=== PATIENT | female | born 1950 | race Caucasian/White ===

== ENCOUNTER 2016-10-17 20:05 | Emergency (ER) | payer OTHER ==
--- NOTE | 2016-10-17 21:27 | ED CLINICAL REPORT ---
Clinical Report - Physicians/Mid Levels [facility] [address] [place] [address] 10/17/2016 20:06 [id number] Time Seen: 20:37; initial patient contact. Arrived- By private vehicle. Historian- patient. HISTORY OF PRESENT ILLNESS Chief Complaint: Chief Complaint- INJURY TO LEFT HAND. INJURY TO THE LEFT INDEX FINGER (Skin at the first knuckle sliced almost completey off.). The injury happened just prior to arrival. Occurred at home. The patient sustained a laceration from a knife. Patient is experiencing moderate pain. No other injury. REVIEW OF SYSTEMS The patient sustained a single laceration to the left index finger. All systems otherwise negative, except as recorded above. PAST HISTORY See nurses notes. The patient's dominant hand is the right. Tetanus immunization status is unknown. Problems: Osteoporosis. Medications: Evista Oral 60 mg, daily. Allergies: None. SOCIAL HISTORY Never smoker. No alcohol use or drug use. ADDITIONAL NOTES The nursing notes have been reviewed with agreement regarding the chief complaint, HPI, ROS, PMH and patient medications and allergies. PHYSICAL EXAM Vital Signs: 10/17/2016 21:40 BP: 136/78. HR: 74. RR: 20. O2 saturation: 99%. Pain level now: 1/10. Have been reviewed. Appearance: Alert. Oriented X3. No acute distress. Skin: Skin intact. Skin warm and dry. Normal skin color. Normal skin turgor. Extremities: No signs of infection present in the upper extremities. Left index finger: superficial 0.5 cm laceration of the dorsal aspect, DIP joint and distal phalanx- SEE LACERATION PROCEDURE NOTE #1. Neurovascular intact distally. No limitation in movement. No subungual hematoma or amputation present. Upper extremity otherwise negative. Extremities otherwise negative. Neuro, Vascular and Tendons: Vascular status intact. Sensation intact. Motor intact. Tendon function intact. Neuro: Oriented X 3. PROGRESS AND PROCEDURES Laceration Repair: Time: 21:25. Location: left index finger. Length: 0.5cm. Complexity: simple (closed with tissue adhesive). Wound depth/shape- curved and subcutaneous and with avulsion. Distal neuro/vascular/tendon status normal. Local anesthesia provided using 1% lidocaine (.5 mL). Prepped with Shur-Clens. Wound explored, cleansed, irrigated and examined to the base in bloodless field extensively with normal saline. Closure of skin: (2 steri strips applied). Skin adhesive used. Post-procedure: she is stable and there are no complications. Bleeding is controlled and neuro-vascular status is intact distal to the wound. Dressing applied. Tetanus immunization given. DTaP administered by nurse. Course of Care: Patient is stable. Physical exam findings are improved. Symptoms better. CLINICAL IMPRESSION Single deep skin avulsion of the left index finger.No left fingernail injury or foreign body present. INSTRUCTIONS Elevate affected areas above chest level. Protect wound and keep wound area clean. Leave dressing in place until seen in follow-up. Keep wounds dry. Apply compresses as instructed. Immobilize wound area as instructed. Limit use of your hand. Do not work with left hand today, until tomorrow. Warnings: COMPLICATIONS: Complications from this condition are possible. Future problems may include infection, scarring and pain. INFECTION: Watch for signs of infection (increasing heat and redness, pus-like drainage, swelling, or increased pain). Return or see your doctor if these signs occur. It is important to follow up with a physician for further evaluation and treatment. TETANUS: You were given a tetanus shot during your visit. Make a note for future reference. Prescription Medications: Hydrocodone/APAP 5mg / 325mg: take 1 orally every 6 hours as needed for pain. Dispense five (5). No refill. Understanding of the discharge instructions verbalized. (Electronically signed by Henna Hernandez PA-C 10/17/2016 21:59)
--- NOTE | 2016-10-17 21:28 | ED NURSING NOTES ---
Clinical Report - Nurses [facility] [address] [place] [address] 10/17/2016 20:06 Patient: ANIRUDH ROSAS TRIAGE Acuity: LEVEL 3. Chief Complaint: INJURY TO LEFT HAND. INJURY TO THE LEFT INDEX FINGER (Skin at the first knuckle sliced almost completey off.). Alert. No acute distress. HANNAH COMA SCORE: Hannah Coma Scale: 15- eyes open spontaneously (4); best verbal response- oriented x 4 (5); best motor response- obeys commands (6). --20:24 Gin Patrick R.N. 20:17 10/17/16. BP: 146/80 taken on the left arm, while sitting. HR: 78. RR: 20. O2 saturation: 98%. Temp: 98.5 F. Pain level now: 710. --20:24 Gin Patrick R.N. 20:17 10/17/16. BP: 146/80 taken on the left arm, while sitting. HR: 78. RR: 20. O2 saturation: 98%. Temp: 98.5 F. Pain level now: 710. --20:24 Gin Patrick R.N. Weight: 113.3 kg stated. Height/Length: 68 inches Per Patient. BMI: 38. --20:17 Gin Patrick R.N. Medications Evista Oral 60 mg, daily. --20:23 Gin Patrick R.N. Medication/allergy information source: the patient. --20:24 Gin Patrick R.N. Allergies None. --20:23 Gin Patrick R.N. History This occurred just prior to arrival. Occurred at home. She sustained a laceration. No numbness. 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 PAST MEDICAL HX: Tetanus status: more than 5 years ago. SOCIAL HX: Never smoker. No alcohol use or drug use. FALL RISK ASSESSMENT: Fall risk assessment completed. No fall risk identified. NUTRITIONAL RISK ASSESSMENT: The nutritional risk assessment revealed no deficiencies. FUNCTIONAL ASSESSMENT: Functional assessment: no impairments noted. LEARNING NEEDS ASSESSMENT: The learning needs assessment revealed no barriers. SKIN INTEGRITY ASSESSMENT: Skin integrity risk assessment completed. No skin integrity risk identified. --20:24 Gin Patrick R.N. PROBLEMS: Osteoporosis. --20:19 Gin Patrick R.N. ADDITIONAL SURGERIES: Bladder Suspension. --20:20 Gin Patrick R.N. Interventions ID band on patient. To room. --20:24 Gin Patrick R.N. PHYSICAL ASSESSMENT Ambulatory to room. GENERAL / NEURO / PSYCH: Oriented X 4. Alert. Appears in no acute distress. Appears in pain and anxious. EXTREMITIES: Capillary refill is less than 2 seconds in the extremities. Extremities exhibit normal ROM. Left hand: subcutaneous laceration with controlled bleeding. SKIN: Skin is warm and dry. Laceration to left index finger. --20:25 Gin Patrick R.N. NURSING PROGRESS NOTES Cold pack applied. Extremity elevated. Two patient identifiers checked. Call light placed in reach. Side rails up x 1. Bed placed in lowest position. Brakes of bed on. Patient ready for evaluation. --20:26 Gin Patrick R.N. Wound cleansed. WOUND REPAIR: Wound repair performed by GABRIELLE. The wound is located on the left index finger. The wound is flap-like. Preparation. Wound cleansed per GABRIELLE. Procedure: wound repaired with steri-strips. Post-procedure: she was stable, no complications, bleeding controlled, neuro-vascular status intact distal to wound and dressing applied. Total time of assist / procedure: 15 minutes. --21:13 Maritza Ladd 21:21 10/17/2016 Hydrocodone-APAP (Hydrocodone-Acetaminophen) PO 5/325 mg Tablets 1 tab given. Allergies verified, confirmed 5 rights and sedative warning given to the patient. --21:26 Gin Patrick R.N. 21:31 10/17/2016 TDAP IM 0.5 mL given. (Lot#: [id number], expiration date: 04/04/2018, Concierge Receptionist: sanofi pasteur). Given in the left deltoid. Allergies verified and confirmed 5 rights. Vaccine information statement provided to the patient and patient's family. --21:31 Gin Patrick R.N. DISPOSITION / DISCHARGE 21:40. Condition at departure: improved. No learning barriers present. Discharge instructions provided and reviewed with the patient. Reviewed medication(s) side effects, precautions, dosing and course information. Prescription(s) given to the patient. Patient verbalized understanding. Written instructions provided in Kazakh. The patient was discharged home and accompanied by spouse. She left the Emergency Department ambulatory and via private vehicle. Spouse driving. Medication list reviewed and validated. --21:49 Gin Patrick R.N. 21:40 10/17/16. BP: 136/78. HR: 74. RR: 20. O2 saturation: 99%. Temp: deferred. Pain level now: 07/07. 20:17 10/17/16. BP: 146/80 taken on the left arm, while sitting. HR: 78. RR: 20. O2 saturation: 98%. Temp: 98.5 F. Pain level now: 01/04. --21:49 Gin Patrick R.N. Locked/Released at 10/17/2016 21:50 by Gin Patrick R.N.
--- NOTE | 2016-10-17 21:28 | ED NURSING NOTES ---
Clinical Report - Nurses [facility] [address] [place] [address] 10/17/2016 20:06 Patient: ANIRUDH ROSAS TRIAGE Acuity: LEVEL 3. Chief Complaint: INJURY TO LEFT HAND. INJURY TO THE LEFT INDEX FINGER (Skin at the first knuckle sliced almost completey off.). Alert. No acute distress. HANNAH COMA SCORE: Hannah Coma Scale: 15- eyes open spontaneously (4); best verbal response- oriented x 4 (5); best motor response- obeys commands (6). --20:24 Gin Patrick R.N. 20:17 10/17/16. BP: 146/80 taken on the left arm, while sitting. HR: 78. RR: 20. O2 saturation: 98%. Temp: 98.5 F. Pain level now: 710. --20:24 Gin Patrick R.N. 20:17 10/17/16. BP: 146/80 taken on the left arm, while sitting. HR: 78. RR: 20. O2 saturation: 98%. Temp: 98.5 F. Pain level now: 710. --20:24 Gin Patrick R.N. Weight: 113.3 kg stated. Height/Length: 68 inches Per Patient. BMI: 38. --20:17 Gin Patrick R.N. Medications Evista Oral 60 mg, daily. --20:23 Gin Patrick R.N. Medication/allergy information source: the patient. --20:24 Gin Patrick R.N. Allergies None. --20:23 Gin Patrick R.N. History This occurred just prior to arrival. Occurred at home. She sustained a laceration. No numbness. 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 PAST MEDICAL HX: Tetanus status: more than 5 years ago. SOCIAL HX: Never smoker. No alcohol use or drug use. FALL RISK ASSESSMENT: Fall risk assessment completed. No fall risk identified. NUTRITIONAL RISK ASSESSMENT: The nutritional risk assessment revealed no deficiencies. FUNCTIONAL ASSESSMENT: Functional assessment: no impairments noted. LEARNING NEEDS ASSESSMENT: The learning needs assessment revealed no barriers. SKIN INTEGRITY ASSESSMENT: Skin integrity risk assessment completed. No skin integrity risk identified. --20:24 Gin Patrick R.N. PROBLEMS: Osteoporosis. --20:19 Gin Patrick R.N. ADDITIONAL SURGERIES: Bladder Suspension. --20:20 Gin Patrick R.N. Interventions ID band on patient. To room. --20:24 Gin Patrick R.N. PHYSICAL ASSESSMENT Ambulatory to room. GENERAL / NEURO / PSYCH: Oriented X 4. Alert. Appears in no acute distress. Appears in pain and anxious. EXTREMITIES: Capillary refill is less than 2 seconds in the extremities. Extremities exhibit normal ROM. Left hand: subcutaneous laceration with controlled bleeding. SKIN: Skin is warm and dry. Laceration to left index finger. --20:25 Gin Patrick R.N. NURSING PROGRESS NOTES Cold pack applied. Extremity elevated. Two patient identifiers checked. Call light placed in reach. Side rails up x 1. Bed placed in lowest position. Brakes of bed on. Patient ready for evaluation. --20:26 Gin Patrick R.N. Wound cleansed. WOUND REPAIR: Wound repair performed by GABRIELLE. The wound is located on the left index finger. The wound is flap-like. Preparation. Wound cleansed per GABRIELLE. Procedure: wound repaired with steri-strips. Post-procedure: she was stable, no complications, bleeding controlled, neuro-vascular status intact distal to wound and dressing applied. Total time of assist / procedure: 15 minutes. --21:13 Maritza Ladd 21:21 10/17/2016 Hydrocodone-APAP (Hydrocodone-Acetaminophen) PO 5/325 mg Tablets 1 tab given. Allergies verified, confirmed 5 rights and sedative warning given to the patient. --21:26 Gin Patrick R.N. 21:31 10/17/2016 TDAP IM 0.5 mL given. (Lot#: [id number], expiration date: 04/04/2018, [employer] Professor: sanofi pasteur). Given in the left deltoid. Allergies verified and confirmed 5 rights. Vaccine information statement provided to the patient and patient's family. --21:31 Gin Patrick R.N. DISPOSITION / DISCHARGE 21:40. Condition at departure: improved. No learning barriers present. Discharge instructions provided and reviewed with the patient. Reviewed medication(s) side effects, precautions, dosing and course information. Prescription(s) given to the patient. Patient verbalized understanding. Written instructions provided in Hebrew. The patient was discharged home and accompanied by spouse. She left the Emergency Department ambulatory and via private vehicle. Spouse driving. Medication list reviewed and validated. --21:49 Gin Patrick R.N. 21:40 10/17/16. BP: 136/78. HR: 74. RR: 20. O2 saturation: 99%. Temp: deferred. Pain level now: 07/07. 20:17 10/17/16. BP: 146/80 taken on the left arm, while sitting. HR: 78. RR: 20. O2 saturation: 98%. Temp: 98.5 F. Pain level now: 01/04. --21:49 Gin Patrick R.N. Locked/Released at 10/17/2016 21:50 by Gin Patrick R.N.
--- NOTE | 2016-10-17 21:28 | ED ORDER SUMMARY ---
..... Patient: ANIRUDH ROSAS OrderSheet [facility] VisitID: [id number] [address] [place] [address] 66y, F Registration Date/Time: 10/17/2016 ORDER SHEET Weight: 113.3 kg (stated) Allergies: None GENERAL ORDERS: MEDICATION ORDERS: Hydrocodone-APAP PO 5/325 mg (NOW, HIGH ALERT MEDICATION) (21:19 10/17/2016 Fiona LR) (21:26 SRoberts R.N.) Tdap IM 0.5 mL (NOW, per protocol) (21:30 10/17/2016 Dasha R.N. per protocol) (21:31 SRoberts R.N.) IV FLUIDS: ORDER SHEET NOTES: [Electronically signed by Gin Patrick R.N. (21:50 10/17/2016)] [Electronically signed by Henna Hernandez PA-C (21:59 10/17/2016)] [Electronically locked/signed by Gin Patrick R.N. (21:50 10/17/2016)]
--- NOTE | 2016-10-17 21:28 | ED ORDER SUMMARY ---
..... Patient: ANIRUDH ROSAS OrderSheet [facility] VisitID: [id number] [address] [place] [address] 66y, F Registration Date/Time: 10/17/2016 ORDER SHEET Weight: 113.3 kg (stated) Allergies: None GENERAL ORDERS: MEDICATION ORDERS: Hydrocodone-APAP PO 5/325 mg (NOW, HIGH ALERT MEDICATION) (21:19 10/17/2016 Fiona LR) (21:26 SRoberts R.N.) Tdap IM 0.5 mL (NOW, per protocol) (21:30 10/17/2016 Dasha R.N. per protocol) (21:31 SRoberts R.N.) IV FLUIDS: ORDER SHEET NOTES: [Electronically signed by Gin Patrick R.N. (21:50 10/17/2016)] [Electronically signed by Henna Hernandez PA-C (21:59 10/17/2016)] [Electronically locked/signed by Gin Patrick R.N. (21:50 10/17/2016)]
--- NOTE | 2016-10-17 22:00 | ED DISCHARGE INSTRUCTIONS ---
Patient: ANIRUDH ROSAS General Instructions [facility] VisitID: [id number] [place] [address] 66y, F Registration Date/Time: 10/17/2016 Single deep skin avulsion of the left index finger.No left fingernail injury or foreign body present. INSTRUCTIONS Elevate affected areas above chest level. Protect wound and keep wound area clean. Leave dressing in place until seen in follow-up. Keep wounds dry. Apply compresses as instructed. Immobilize wound area as instructed. Limit use of your hand. Do not work with left hand today, until tomorrow. Warnings: COMPLICATIONS: Complications from this condition are possible. Future problems may include infection, scarring and pain. INFECTION: Watch for signs of infection (increasing heat and redness, pus-like drainage, swelling, or increased pain). Return or see your doctor if these signs occur. It is important to follow up with a physician for further evaluation and treatment. TETANUS: You were given a tetanus shot during your visit. Make a note for future reference. Prescription Medications: Hydrocodone/APAP 5mg / 325mg: take 1 orally every 6 hours as needed for pain. Dispense five (5). No refill. Understanding of the discharge instructions verbalized. ADDITIONAL INFORMATION Laceration, Extremity (Sutures, Edison, Or Tape) A laceration is a cut through the skin. This will usually require stitches (sutures) or jamie if it is deep. Minor cuts may be treated with surgical tape closures. Home care The following guidelines will help you care for your laceration at home: Keep the wound clean and dry. If a bandage was applied and it becomes wet or dirty, replace it. Otherwise, leave it in place for the first 24 hours, then change it once a day or as directed. If stitches or jamie were used, clean the wound daily: After removing the bandage, wash the area with soap and water. Use a wet cotton swab to loosen and remove any blood or crust that forms. After cleaning, keep the wound clean and dry. Talk with your doctor before applying any antibiotic ointment to the wound. Reapply the bandage. You may remove the bandage to shower as usual after the first 24 hours, but do not soak the area in water (no swimming) until the stitches or jamie are removed. If surgical tape closures were used, keep the area clean and dry. If it becomes wet, blot it dry with a towel. The doctor may prescribe an antibiotic cream or ointment to prevent infection. Do not stop taking this medication until you have finished the prescribed course or the doctor tells you to stop. The doctor may also prescribe medications for pain. Follow the doctors instructions for taking these medications. If you have chronic liver or kidney disease or ever had a stomach ulcer or GI bleeding, talk with your doctor before using these medicines. Follow-up care Follow up with your health care provider. Most skin wounds heal within ten days. However, an infection may sometimes occur despite proper treatment. Therefore, check the wound daily for the signs of infection listed below. Stitches and jamie should be removed within 714 days. If surgical tape closures were used, you may remove them after 10 days, if they have not fallen off by then. Notify your doctor if you notice persistent numbness or weakness in the injured extremity. (Note:A radiologist will review any X-rays that were taken. We will notify you of any new findings that may affect your care.) When to seek medical care Get prompt medical attention if any of these occur: Increasing pain in the wound Redness, swelling, or pus coming from the wound Fever of 100.4F (38C) or higher, or as directed by your health care provider If stitches or jamie come apart or fall out before your next appointment If the surgical tape closures fall off within seven days, or the wound edges re-open Bleeding not controlled by direct pressure Diphtheria Toxoid Adsorbed, Pertussis Vaccine, Acellular (Adsorbed), Tetanus Toxoid, Adsorbed Suspension for injection What is this medicine? DIPHTHERIA and TETANUS TOXOIDS; PERTUSSIS VACCINE (dif THEER ee and TET n us TOK soids; per TUS iss vak SEEN) is used to prevent diphtheria, tetanus, and pertussis infections. How should I use this medicine? This vaccine is for injection into a muscle. It is given by a health director medicare sales. A copy of Vaccine Information Statements will be given before each vaccination. Read this sheet carefully each time. The sheet may change frequently. Talk to your sports photographer regarding the use of this vaccine in children. While the DTP vaccine may be given to children ages 6 weeks to 7 years and the Tdap vaccine may be given to children at least 10 years old, precautions do apply. What side effects may I notice from receiving this medicine? Side effects that you should report to your doctor or health director medicare sales as soon as possible: allergic reactions like skin rash, itching or hives, swelling of the face, lips, or tongue breathing problems fever of 103 degrees F or more flu-like symptoms inconsolable crying infection pain, tingling, numbness in the hands or feet seizures swelling of arm or leg that was injected unusually weak or tired Side effects that usually do not require immediate medical attention (report these side effects to your doctor or health director medicare sales if they continue or are bothersome): fussy, irritable loss of appetite fever of 102 degrees F or less pain, tenderness, redness, swelling, or a 'knot' at site where injected vomiting What may interact with this medicine? immune globulin medicines that suppress your immune function like adalimumab, anakinra, infliximab medicines to treat cancer medicines that treat or prevent blood clots like warfarin, enoxaparin, and dalteparin steroid medicines like prednisone or cortisone What if I miss a dose? It is important not to miss your dose. Call your doctor or health director medicare sales if you are unable to keep an appointment. Where should I keep my medicine? This drug is given in a hospital or clinic and will not be stored at home. What should I tell my health care provider before I take this medicine? They need to know if you have any of these conditions: blood disorders like hemophilia fever or infection immune system problems neurologic disease seizures an unusual or allergic reaction to vaccines, thimerosal, latex, other medicines, foods, dyes, or preservatives or trying to get breast-feeding What should I watch for while using this medicine? See your health care provider for all shots of this vaccine as directed. To have protection from infection, you must have 3 shots of this vaccine plus boosters as needed. Tell your doctor right away if you have any serious or unusual side effects after getting this vaccine. You have been given the following additional information: Laceration, Extrem (Suture, Staple, Or Tape) Diphtheria Toxoid Adsorbed, Pertussis Vaccine, Acellular (Adsorbed), Tetanus Toxoid, Adsorbed Suspension for injection Limit use of your hand. Do not work with left hand today, until tomorrow. (Electronically signed by Henna Hernandez PA-C 10/17/2016 21:59)
--- NOTE | 2016-10-17 22:00 | ED MAR SUMMARY ---
..... Medication Administration Record [facility] [address] [place] [address] Patient: ANIRUDH ROSAS Visit ID: [id number] 66y, F Weight: 113.3 kg Height/Length: 68 in BMI: 38 ALLERGIES: None Given 21:21 10/17/2016 Gin Patrick R.N. Medication Administered: HYDROCODONE-APAP [PO] (HYDROCODONE-ACETAMINOPHEN), Dose: 1 tab 5/325 mg Tablets PO. Medication Ordered: Hydrocodone-APAP PO 5/325 mg (NOW, HIGH ALERT MEDICATION). Given 21:10/17/2016 Gin Patrick R.NRobert Medication Administered: TDAP [IM], Dose: 0.5 mL IM. Medication Ordered: Tdap IM 0.5 mL (NOW, per protocol).
--- NOTE | 2016-10-17 22:00 | ED MED RECONCILIATION SUMMARY ---
Patient: ANIRUDH ROSAS Medication Reconciliation Report [facility] VisitID: [id number] [address] [address] 66y, F Registration Date/Time: 10/17/2016 Weight: 113.3 kg Height/Length: 68 in. BMI: 38.0 ALLERGIES: None The patient's Home Medications are listed below: THE FOLLOWING MEDICATIONS NEED TO BE RECONCILED: Evista Oral 60 mg, daily The source(s) of the original Home Medication information: patient The following Medications were given to the patient in the Emergency Department: Hydrocodone-APAP [PO] PO 1 tab, administered: 10/17/2016 9:21:00 PM TDAP [IM] IM 0.5 mL, administered: 10/17/2016 9:31:00 PM The following Medications were prescribed to the patient: Hydrocodone/APAP 5mg / 325mg: take 1 orally every 6 hours as needed for pain. Dispense five (5). No refill. -- Henna Hernandez PA-C
--- NOTE | 2016-10-17 22:00 | ED MED RECONCILIATION SUMMARY ---
Patient: ANIRUDH ROSAS Medication Reconciliation Report [facility] VisitID: [id number] [address] [address] 66y, F Registration Date/Time: 10/17/2016 Weight: 113.3 kg Height/Length: 68 in. BMI: 38.0 ALLERGIES: None The patient's Home Medications are listed below: THE FOLLOWING MEDICATIONS NEED TO BE RECONCILED: Evista Oral 60 mg, daily The source(s) of the original Home Medication information: patient The following Medications were given to the patient in the Emergency Department: Hydrocodone-APAP [PO] PO 1 tab, administered: 10/17/2016 9:21:00 PM TDAP [IM] IM 0.5 mL, administered: 10/17/2016 9:31:00 PM The following Medications were prescribed to the patient: Hydrocodone/APAP 5mg / 325mg: take 1 orally every 6 hours as needed for pain. Dispense five (5). No refill. -- Henna Hernandez PA-C
--- NOTE | 2016-10-17 22:00 | ED DISCHARGE INSTRUCTIONS ---
Patient: ANIRUDH ROSAS General Instructions [facility] VisitID: [id number] [place] [address] 66y, F Registration Date/Time: 10/17/2016 Single deep skin avulsion of the left index finger.No left fingernail injury or foreign body present. INSTRUCTIONS Elevate affected areas above chest level. Protect wound and keep wound area clean. Leave dressing in place until seen in follow-up. Keep wounds dry. Apply compresses as instructed. Immobilize wound area as instructed. Limit use of your hand. Do not work with left hand today, until tomorrow. Warnings: COMPLICATIONS: Complications from this condition are possible. Future problems may include infection, scarring and pain. INFECTION: Watch for signs of infection (increasing heat and redness, pus-like drainage, swelling, or increased pain). Return or see your doctor if these signs occur. It is important to follow up with a physician for further evaluation and treatment. TETANUS: You were given a tetanus shot during your visit. Make a note for future reference. Prescription Medications: Hydrocodone/APAP 5mg / 325mg: take 1 orally every 6 hours as needed for pain. Dispense five (5). No refill. Understanding of the discharge instructions verbalized. ADDITIONAL INFORMATION Laceration, Extremity (Sutures, [place], Or Tape) A laceration is a cut through the skin. This will usually require stitches (sutures) or jamie if it is deep. Minor cuts may be treated with surgical tape closures. Home care The following guidelines will help you care for your laceration at home: Keep the wound clean and dry. If a bandage was applied and it becomes wet or dirty, replace it. Otherwise, leave it in place for the first 24 hours, then change it once a day or as directed. If stitches or jamie were used, clean the wound daily: After removing the bandage, wash the area with soap and water. Use a wet cotton swab to loosen and remove any blood or crust that forms. After cleaning, keep the wound clean and dry. Talk with your doctor before applying any antibiotic ointment to the wound. Reapply the bandage. You may remove the bandage to shower as usual after the first 24 hours, but do not soak the area in water (no swimming) until the stitches or jamie are removed. If surgical tape closures were used, keep the area clean and dry. If it becomes wet, blot it dry with a towel. The doctor may prescribe an antibiotic cream or ointment to prevent infection. Do not stop taking this medication until you have finished the prescribed course or the doctor tells you to stop. The doctor may also prescribe medications for pain. Follow the doctors instructions for taking these medications. If you have chronic liver or kidney disease or ever had a stomach ulcer or GI bleeding, talk with your doctor before using these medicines. Follow-up care Follow up with your health care provider. Most skin wounds heal within ten days. However, an infection may sometimes occur despite proper treatment. Therefore, check the wound daily for the signs of infection listed below. Stitches and jamie should be removed within 714 days. If surgical tape closures were used, you may remove them after 10 days, if they have not fallen off by then. Notify your doctor if you notice persistent numbness or weakness in the injured extremity. (Note:A radiologist will review any X-rays that were taken. We will notify you of any new findings that may affect your care.) When to seek medical care Get prompt medical attention if any of these occur: Increasing pain in the wound Redness, swelling, or pus coming from the wound Fever of 100.4F (38C) or higher, or as directed by your health care provider If stitches or jamie come apart or fall out before your next appointment If the surgical tape closures fall off within seven days, or the wound edges re-open Bleeding not controlled by direct pressure Diphtheria Toxoid Adsorbed, Pertussis Vaccine, Acellular (Adsorbed), Tetanus Toxoid, Adsorbed Suspension for injection What is this medicine? DIPHTHERIA and TETANUS TOXOIDS; PERTUSSIS VACCINE (dif THEER ee and TET n us TOK soids; per TUS iss vak SEEN) is used to prevent diphtheria, tetanus, and pertussis infections. How should I use this medicine? This vaccine is for injection into a muscle. It is given by a health insurance healthcare consultant. A copy of Vaccine Information Statements will be given before each vaccination. Read this sheet carefully each time. The sheet may change frequently. Talk to your tube rebuilder regarding the use of this vaccine in children. While the DTP vaccine may be given to children ages 6 weeks to 7 years and the Tdap vaccine may be given to children at least 10 years old, precautions do apply. What side effects may I notice from receiving this medicine? Side effects that you should report to your doctor or health insurance healthcare consultant as soon as possible: allergic reactions like skin rash, itching or hives, swelling of the face, lips, or tongue breathing problems fever of 103 degrees F or more flu-like symptoms inconsolable crying infection pain, tingling, numbness in the hands or feet seizures swelling of arm or leg that was injected unusually weak or tired Side effects that usually do not require immediate medical attention (report these side effects to your doctor or health insurance healthcare consultant if they continue or are bothersome): fussy, irritable loss of appetite fever of 102 degrees F or less pain, tenderness, redness, swelling, or a 'knot' at site where injected vomiting What may interact with this medicine? immune globulin medicines that suppress your immune function like adalimumab, anakinra, infliximab medicines to treat cancer medicines that treat or prevent blood clots like warfarin, enoxaparin, and dalteparin steroid medicines like prednisone or cortisone What if I miss a dose? It is important not to miss your dose. Call your doctor or health insurance healthcare consultant if you are unable to keep an appointment. Where should I keep my medicine? This drug is given in a hospital or clinic and will not be stored at home. What should I tell my health care provider before I take this medicine? They need to know if you have any of these conditions: blood disorders like hemophilia fever or infection immune system problems neurologic disease seizures an unusual or allergic reaction to vaccines, thimerosal, latex, other medicines, foods, dyes, or preservatives or trying to get breast-feeding What should I watch for while using this medicine? See your health care provider for all shots of this vaccine as directed. To have protection from infection, you must have 3 shots of this vaccine plus boosters as needed. Tell your doctor right away if you have any serious or unusual side effects after getting this vaccine. You have been given the following additional information: Laceration, Extrem (Suture, Staple, Or Tape) Diphtheria Toxoid Adsorbed, Pertussis Vaccine, Acellular (Adsorbed), Tetanus Toxoid, Adsorbed Suspension for injection Limit use of your hand. Do not work with left hand today, until tomorrow. (Electronically signed by Henna Hernandez PA-C 10/17/2016 21:59)
--- NOTE | 2016-10-17 22:00 | ED MAR SUMMARY ---
..... Medication Administration Record [facility] [address] [place] [address] Patient: ANIRUDH ROSAS Visit ID: [id number] 66y, F Weight: 113.3 kg Height/Length: 68 in BMI: 38 ALLERGIES: None Given 21:21 10/17/2016 Gin Patrick R.N. Medication Administered: HYDROCODONE-APAP [PO] (HYDROCODONE-ACETAMINOPHEN), Dose: 1 tab 5/325 mg Tablets PO. Medication Ordered: Hydrocodone-APAP PO 5/325 mg (NOW, HIGH ALERT MEDICATION). Given 21:10/17/2016 Gin Patrick R.NRobert Medication Administered: TDAP [IM], Dose: 0.5 mL IM. Medication Ordered: Tdap IM 0.5 mL (NOW, per protocol).
== END 2016-10-17 21:40 | disposition home or self-care (01) ==
LOC: ED SRH 20:05
DX: S61.211A Laceration without foreign body of left index finger without damage to nail, initial encounter (principal); W26.0XXA Contact with knife, initial encounter; Y93.9 Activity, unspecified; Y92.009 Unspecified place in unspecified non-institutional (private) residence as the place of occurrence of the external cause; Y99.9 Unspecified external cause status